=== PATIENT | female | born 1990 | race Caucasian/White ===

== ENCOUNTER 2022-05-10 16:20 | Emergency (ER) | payer OTHER ==
[2022-05-10] MEDS ORDERED: Sodium Chloride 0.9% 1,000 ML IV ONE (16:39)
[2022-05-10] MEDS ORDERED: fentaNYL 50 MCG/ML SDV IVPUSH ONE (16:39)
[2022-05-10] MEDS ORDERED: Ondansetron 4 MG/2 ML SDV IVPUSH ONE (16:39)
[2022-05-10] MEDS ORDERED: Iopamidol 755 Mg/ML 100 ML Bottle IVPUSH ONE (16:59)
[2022-05-10] MEDS ORDERED: Ketorolac 30 MG/ML SDV IM ONE (17:33)
[2022-05-10] MEDS ORDERED: cefTRIAXone 2 GM Vial IVPUSH ONE (17:36)
[2022-05-10] MEDS ORDERED: Take Home: Ciprofloxacin 500 MG Tab, 2 Tab Pack PO ONE (18:00)
[2022-05-10] MEDS ORDERED: Take Home: Ondansetron 4 MG Tab.DIS, 2 Tab Pack PO ONE (18:00)
== END 2022-05-10 19:05 | disposition home or self-care (01) ==
LOC: CC.ED 16:20
DX: N20.1 Calculus of ureter (principal); N30.01 Acute cystitis with hematuria; Z79.899 Other long term (current) drug therapy; Z20.822 Contact with and (suspected) exposure to COVID-19
CPT/HCPCS: 36415; 74177; 80053; 81001; 81025; 83605; 83690; 83735; 85025; 93005; 96361; 96372; 96374; 96375; 99284; 99284-25; A9270-GY; J0696; J1885; J2405; J3010; J7030; Q9967; U0002